=== PATIENT | female | born 1950 | race Caucasian/White ===

== ENCOUNTER 2018-01-20 09:27 | Day surgery (SDC) | payer MEDICARE, MEDICAID ==
[~2018-01-20 09:27] MED LIST: Dilation Soln 1 EA EACH EYELF ONE; Moxifloxacin 0.5% Ophth Soln 3 ML Bottle EYELF ONE; Phenylephrine 10% Ophth Soln 5 ML Bot EYELF ONE; Povidone-Iodine 5% Sterile Ophth Soln 30 ML Bottle EYELF ONE; Proparacaine 0.5% Ophth Soln 15 ML Bottle EYELF ONE; Sodium Chloride 0.9% 10 ML Syringe FLUSH SCH; Timolol Maleate 0.5% Ophth Soln 5 ML Bottle EYELF ONE
[2018-01-20] MEDS ORDERED: Dexamethasone 4 MG/ML SDV IV ONE (09:28)
[2018-01-20] MEDS ORDERED: Sodium Chloride 0.9% 10 ML Syringe IV ONE (09:28)
[2018-01-20] MEDS ORDERED: Midazolam 1 MG/ML 2 ML SDV IV ONE (09:28)
[2018-01-20] MEDS ORDERED: Tetracaine HCl/PF 0.5% 4 ML Bottle EYELF ONE (10:39)
[2018-01-20] MEDS ORDERED: Povidone-Iodine 5% Sterile Ophth Soln 30 ML Bottle EYELF ONE (10:39)
[2018-01-20] MEDS ORDERED: Lidocaine 1% 30 ML SDV INJECT ONE (10:47)
[2018-01-20] MEDS ORDERED: Chondroitin Sulfate/Hyaluronate Sodium Ophth Inj 0.75 ML Syringe EYELF ONE (10:48)
[2018-01-20] MEDS ORDERED: Balanced Salt Solution Ophth Irrig 500 ML Bottle IOCULAR ONE (10:48)
[2018-01-20] MEDS ORDERED: Vancomycin 500 MG SDV EYELF ONE (10:50)
[2018-01-20] MEDS ORDERED: Dexamethasone 4 MG/ML SDV IOCULAR ONE (10:53)
[2018-01-20] MEDS ORDERED: Dexamethasone/Neomycin/Polymyxin B Ophth Oint 3.5 GM Tube EYELF ONE (10:57)
[2018-01-20] MEDS ORDERED: Apraclonidine 0.5% Ophth Soln 5 ML Bot EYELF ONE (10:57)
[2018-01-20] MEDS ORDERED: Diclofenac Sodium 0.1% Ophth Soln 5 ML Bottle EYELF ONE (10:57)
--- NOTE | 2018-01-20 11:33 | OR ---
DATE: 01/20/2018 PREOPERATIVE DIAGNOSIS: Visually significant mixed cataract, left eye. POSTOPERATIVE DIAGNOSIS: Visually significant mixed cataract, left eye. PROCEDURE: Extracapsular cataract extraction with intraocular lens implant, left eye. ANESTHESIA: Topical/local MAC. COMPLICATIONS: None. INDICATION: Mrs. Blandon was seen in the clinic. Examination revealed best spectacle corrected vision of 20/200 and advanced brunescent cataract. She is symptomatic and requested cataract surgery. I offered cataract surgery; and I explained risks preoperatively including the potential for infection, retinal detachment, loss of vision, and need for additional surgery amongst others. We discussed implant options, and she has requested a monofocal implant. OPERATIVE DESCRIPTION: After informed consent was obtained and the risks, benefits, and alternatives were explained, the patient was brought to the operative suite and topical anesthesia was administered. The patient was then prepped and draped in the sterile fashion, and attention was placed on the left eye. A sterile lid speculum was placed into the left eye to allow operative exposure. A full-thickness paracentesis was made in the temporal portion of the operative eye. Preservative-free lidocaine 0.1 mL was injected into the anterior chamber followed by viscoelastic. A full-thickness corneal incision was then made into the anterior chamber. A bent needle cystotome was used to create a small jamal in the anterior capsule. The capsulorrhexis forceps was then used to create a 360-degree curvilinear capsulorrhexis. The nucleus was then removed using a phacoemulsification handpiece, and the remaining cortical material was then removed with irrigation and aspiration handpiece. Following removal of the cortical material, the capsular bag was then inspected and noted to be free of any holes or tears. Viscoelastic was then injected into the capsular bag, and the intraocular lens was inserted into the capsular bag. The viscoelastic material was then removed from both the anterior and posterior chambers and from behind the IOL. The lens and capsular bag were then reinspected. The IOL was well centered and the capsular bag intact. The wound and paracentesis sites were inspected and hydrated with balanced saline solution. Both were found to be self-sealing. The intraocular pressure was assessed digitally and found to be within normal range. A good red reflex was noted at the completion of the procedure. No complications occurred during the operation. At the completion of the procedure, Maxitrol, Voltaren, and Iopidine drops were placed into the operative eye. A sterile eye shield was placed over the operative eye, and the patient was transported to the postoperative recovery area having tolerated the procedure well. Postoperative instructions were given along with a postoperative appointment. The patient was advised to call with any questions or concerns. [facility] /[id number]
[2018-01-20 12:01] VITALS: BP 129/67
== END 2018-01-20 11:59 | disposition home or self-care (01) ==
LOC: DL.SDS 09:27
PROVIDERS: ATTEND Ophthalmology
DX: H26.9 Unspecified cataract (principal); R56.9 Unspecified convulsions; E78.5 Hyperlipidemia, unspecified; K21.9 Gastro-esophageal reflux disease without esophagitis; F41.9 Anxiety disorder, unspecified; I82.4Z2 Acute embolism and thrombosis of unspecified deep veins of left distal lower extremity; E87.6 Hypokalemia; M19.90 Unspecified osteoarthritis, unspecified site; Z87.891 Personal history of nicotine dependence; Z79.01 Long term (current) use of anticoagulants; Z79.899 Other long term (current) drug therapy; Z88.5 Allergy status to narcotic agent; Z91.018 Allergy to other foods; Z91.030 Bee allergy status; Z91.048 Other nonmedicinal substance allergy status
CPT/HCPCS: 00142; 66984; A9270; C1780; J1100; J2250; J3370; J7050

== ENCOUNTER 2018-01-27 09:00 | Day surgery (SDC) | payer MEDICARE, MEDICAID ==
[2018-01-27] MEDS ORDERED: Dexamethasone 4 MG/ML SDV IV ONE (09:01)
[2018-01-27] MEDS ORDERED: Midazolam 1 MG/ML 2 ML SDV IV ONE (09:01)
[2018-01-27] MEDS ORDERED: Sodium Chloride 0.9% 10 ML Syringe IV ONE (09:01)
[2018-01-27] MEDS ORDERED: Apraclonidine 0.5% Ophth Soln 5 ML Bot EYERT ONE (09:56)
[2018-01-27] MEDS ORDERED: Chondroitin Sulfate/Hyaluronate Sodium Ophth Inj 0.75 ML Syringe EYERT ONE (09:56)
[2018-01-27] MEDS ORDERED: Povidone-Iodine 5% Sterile Ophth Soln 30 ML Bottle EYERT ONE ×2 (09:56→10:24)
[2018-01-27] MEDS ORDERED: Balanced Salt Solution Ophth Irrig 15 ML Bottle EYERT ONE (09:56)
[2018-01-27] MEDS ORDERED: Balanced Salt Solution Ophth Irrig 500 ML Bottle IOCULAR ONE (09:56)
[2018-01-27] MEDS ORDERED: Tetracaine HCl/PF 0.5% 4 ML Bottle EYERT ONE (09:56)
[2018-01-27] MEDS ORDERED: Dexamethasone/Neomycin/Polymyxin B Ophth Oint 3.5 GM Tube EYERT ONE (10:08)
[2018-01-27] MEDS ORDERED: Vancomycin 500 MG SDV EYERT ONE (10:08)
[2018-01-27] MEDS ORDERED: Moxifloxacin 0.5% Ophth Soln 3 ML Bottle EYERT ONE (10:24)
[2018-01-27] MEDS ORDERED: Phenylephrine 10% Ophth Soln 5 ML Bot EYERT ONE (10:24)
[2018-01-27] MEDS ORDERED: Proparacaine 0.5% Ophth Soln 15 ML Bottle EYERT ONE (10:24)
[2018-01-27] MEDS ORDERED: Dilation Soln 1 EA EACH EYERT ONE (10:24)
[2018-01-27] MEDS ORDERED: Timolol Maleate 0.5% Ophth Soln 5 ML Bottle EYERT ONE (10:24)
[2018-01-27] MEDS ORDERED: Sodium Chloride 0.9% 10 ML Syringe FLUSH SCH (10:30)
--- NOTE | 2018-01-27 10:53 | OR ---
DATE: 01/27/2018 PREOPERATIVE DIAGNOSIS: Visually significant mixed cataract, right eye. POSTOPERATIVE DIAGNOSIS: Visually significant mixed cataract, right eye. PROCEDURE: Extracapsular cataract extraction with intraocular lens implant, right eye. ANESTHESIA: Topical/local MAC. COMPLICATIONS: None. INDICATION: Visually significant symptomatic cataract. Surgical risks were explained preoperatively including the potential for infection, retinal detachment, loss of vision, and need for additional surgery amongst others. Implant options were discussed. She requested a monofocal implant. OPERATIVE DESCRIPTION: After informed consent was obtained and the risks, benefits, and alternatives were explained, the patient was brought to the operative suite and topical anesthesia was administered. The patient was then prepped and draped in the sterile fashion, and attention was placed on the right eye. A sterile lid speculum was placed into the right eye to allow operative exposure. A full-thickness paracentesis was made in the temporal portion of the operative eye. Preservative-free lidocaine 0.1 mL was injected into the anterior chamber followed by viscoelastic. A full-thickness corneal incision was then made into the anterior chamber. A bent needle cystotome was used to create a small jamal in the anterior capsule. The capsulorrhexis forceps was then used to create a 360-degree curvilinear capsulorrhexis. The nucleus was then removed using a phacoemulsification handpiece, and the remaining cortical material was then removed with irrigation and aspiration handpiece. Following removal of the cortical material, the capsular bag was then inspected and noted to be free of any holes or tears. Viscoelastic was then injected into the capsular bag, and the intraocular lens was inserted into the capsular bag. The viscoelastic material was then removed from both the anterior and posterior chambers and from behind the IOL. The lens and capsular bag were then reinspected. The IOL was well centered and the capsular bag intact. The wound and paracentesis sites were inspected and hydrated with balanced saline solution. Both were found to be self-sealing. The intraocular pressure was assessed digitally and found to be within normal range. A good red reflex was noted at the completion of the procedure. No complications occurred during the operation. At the completion of the procedure, Maxitrol, Voltaren, and Iopidine drops were placed into the operative eye. A sterile eye shield was placed over the operative eye, and the patient was transported to the postoperative recovery area having tolerated the procedure well. Postoperative instructions were given along with a postoperative appointment. The patient was advised to call with any questions or concerns. [facility] /[id number]
[2018-01-27 11:06] VITALS: BP 123/98
== END 2018-01-27 11:15 | disposition home or self-care (01) ==
LOC: DL.SDS 09:00
PROVIDERS: ATTEND Ophthalmology
DX: H25.811 Combined forms of age-related cataract, right eye (principal); K21.9 Gastro-esophageal reflux disease without esophagitis; I82.4Z2 Acute embolism and thrombosis of unspecified deep veins of left distal lower extremity; E87.6 Hypokalemia; M19.90 Unspecified osteoarthritis, unspecified site; E78.5 Hyperlipidemia, unspecified; F41.9 Anxiety disorder, unspecified; R56.9 Unspecified convulsions; Z88.5 Allergy status to narcotic agent; Z91.018 Allergy to other foods; Z91.030 Bee allergy status; Z87.891 Personal history of nicotine dependence; Z98.42 Cataract extraction status, left eye; Z96.1 Presence of intraocular lens; Z79.899 Other long term (current) drug therapy
CPT/HCPCS: 00142; A9270-GY; J1100; J2250; J3370; J7050; V2632